=== PATIENT | female | born 1985 | race Caucasian/White ===

== ENCOUNTER 2020-03-02 05:46 | Emergency (ER) | payer OTHER ==
[2020-03-02 05:55] VITALS: RESP 18
[2020-03-02 06:21] LABS: Appearance,Urine Cloudy (Clear); Bacteria,Urine Rare /hpf; Bilirubin,Urine Negative (Negative); Blood,Urine Moderate (Negative); Color,Urine Yellow; Glucose,Urine (UA) Negative (Negative); Ketones,Urine Negative (Negative); Leukocyte Esterase,Urine Large (Negative); Mucus,Urine Many /hpf; Nitrite,Urine Negative (Negative); PH, Urine 5.5 (5.0-8.0); Protein,Urine Trace (Negative); RBC,Urine 3 /hpf (0-5); Specific Gravity,Urine 1.025 (1.001-1.035); Squamous Epithelial Cell,Urine 7 /hpf (0-4); Urobilinogen,Urine <2.0 mg/dL (<2.0); WBC,Urine 45 /hpf (0-5)
--- NOTE | 2020-03-02 06:26 | ED ---
Female Urogenital HPI - General Chief complaint: Urogenital Stated complaint: pelvic pain Source: patient Mode of arrival: ambulatory Limitations: no limitations - History of Present Illness Initial comments: 34-year-old female presenting today for chief complaint of pelvic pressure dysuria or urgency frequency. Patient states that for 2 days she has had pelvic pressure dysuria urgency frequency and feels like when she's had a urinary tract infection in the past she denies a low back or flank pain denies any fevers chills or general malaise. Patient denies any severe pain she states is more discomfort. Patient states she attempted to take ciprofloxacin which she had left over from a previous urinary tract infection she states she was taking it every 12 hours and had taken a total of 3 tablets. Patient denies any additional complaints denies vaginal discharge, concern for STI, nausea, vomiting, history of kidney stone, denies noting hematuria. Remaining ROS (-). Upon arrival patient appears well no signs of acute distress. Appears well. - Related Data Previous Rx's Medication Instructions Recorded Ciprofloxacin HCl [Cipro] 500 mg PO Q12HR #14 tablet 01/05/16 Ondansetron Odt [Zofran Odt] 4 mg PO Q8HR PRN #10 tab 01/05/16 Cephalexin [Keflex] 500 mg PO Q8HR 5 Days #15 cap 03/02/20 Ibuprofen [Motrin] 600 mg PO Q8HR PRN 7 Days #21 tab 03/02/20 Allergies Allergy/AdvReac Type Severity Reaction Status Date / Time No Known Allergies Allergy Verified 03/02/20 05:55 Review of Systems ROS Statement: Those systems with pertinent positive or pertinent negative responses have been documented in the HPI. ROS Other: All systems not noted in ROS Statement are negative. Past Medical History Past Medical History: No Reported History History of Any Multi-Drug Resistant Organisms: None Reported Past Surgical History: No Surgical Hx Reported Past Psychological History: Bipolar Smoking Status: Current every day smoker Past Alcohol Use History: None Reported Past Drug Use History: None Reported General Exam - General Exam Comments Initial Comments: General: The patient is awake and alert, in no distress Eye: Pupils are equal, round and reactive to light, extra-ocular movements are intact. No nystagmus. There is normal conjunctiva bilaterally. No signs of icterus. Cardiovascular: There is a regular rate and rhythm. No murmur, rub or gallop is appreciated. Respiratory: Lungs are clear to auscultation, respirations are non-labored, breath sounds are equal. No wheezes, stridor, rales, or rhonchi. Gastrointestinal: Soft, non-distended, tenderness over the superior bladder margin, remaining abdomen is nontender and is without masses or organomegaly noted. No RLQ. There is no rebound or guarding present. Pelvic: No cervical motion tenderness, vaginal discharge in the vault, no odor, no adnexal tenderness. Musculoskeletal: Normal ROM, no tenderness. Strength 5/5. Sensation intact. Radial pulses equal bilaterally 2+. Neurological: A&O x 3. CN II-XII intact grossly, There are no obvious motor or sensory deficits. Coordination appears grossly intact. Speech is normal. Skin: Skin is warm and dry and no rashes or lesions are noted. Psychiatric: Cooperative, appropriate mood & affect, normal judgment. Limitations: no limitations Course Vital Signs 03/02/20 03/02/20 05:53 07:00 Temperature 99.1 F 99.4 F Pulse Rate 118 H 85 Respiratory 18 18 Rate Blood Pressure 93/64 107/70 O2 Sat by Pulse 100 98 Oximetry Medical Decision Making - Medical Decision Making 34yo female presenting today for chief complaint of dysuria urgency frequency of lower pelvic pain she states it feels identical to when she's had urinary tract infections in the past. Patient denies additional complaints pelvic exam revealed no cervical motion tenderness skin discharged cultures pending patient denies concern for sexually transmitted diseases. Urine consistent with infection. No back or flank pain. Rocephin given in ER. Patient discharged appearing well. - Lab Data Lab Results 03/02/20 03/02/20 Range/Units 06:00 06:00 Urine Color Yellow Urine Appearance Cloudy H (Clear) Urine pH 5.5 (5.0-8.0) Ur Specific [place] 1.025 (1.001-1.035) Urine Protein Trace H (Negative) Urine Glucose (UA) Negative (Negative) Urine Ketones Negative (Negative) Urine Blood Moderate H (Negative) Urine Nitrite Negative (Negative) Urine Bilirubin Negative (Negative) Urine Urobilinogen <2.0 (<2.0) mg/dL Ur Leukocyte Esterase Large H (Negative) Urine RBC 3 (0-5) /hpf Urine WBC 45 H (0-5) /hpf Ur Squamous Epith Cells 7 H (0-4) /hpf Urine Bacteria Rare H (None) /hpf Urine Mucus Many H (None) /hpf Urine HCG, Qual Not Detected (Not Detectd) Disposition Clinical Impression: UTI (urinary tract infection) Disposition: HOME SELF-CARE Condition: Good Instructions (If sedation given, give patient instructions): Urinary Tract Infection in Women (ED) Additional Instructions: Please use medication as discussed. Please follow-up with family doctor in the next 2 days. Please return to emergency room if the symptoms increase or worsen or for any other concerns. Prescriptions: Cephalexin [Keflex] 500 mg PO Q8HR 5 Days #15 cap Ibuprofen [Motrin] 600 mg PO Q8HR PRN 7 Days #21 tab PRN Reason: Pain Is patient prescribed a controlled substance at d/c from ED?: No Referrals: None,Stated [Primary Care Provider] - 1-2 days [facility] [NON-STAFF] - 1-2 days Time of Disposition: 07:15
[2020-03-02] MEDS ORDERED: cefTRIAXone 1,000 MG VIAL (IM USE) IM STA (06:38)
[2020-03-02 07:07] VITALS: BP 107/70; PULSE 85; TEMP 99.4
[2020-03-03 14:27] LABS: C. trachomatis,PCR Positive (Neg,Equiv); Chlamydia trachomatis Source Vagina; N. gonorrhoeae,PCR Negative (Neg,Equiv); Neisseria Source Vagina
== END 2020-03-02 07:14 | disposition home or self-care (01) ==
LOC: EC 05:46
DX: N39.0 Urinary tract infection, site not specified (principal); F17.200 Nicotine dependence, unspecified, uncomplicated
CPT/HCPCS: 99284; 96372; 81001; 81025; 87808; 87491; 87591; 87070; 87086; J0696